=== PATIENT | female | born 1945 | race African-American/Black ===

== ENCOUNTER → 2018-12-30 | Outpatient (CLI) | payer OTHER | END | disposition home or self-care (01) | LOC: US 08:45 | PROC: BW40ZZZ Ultrasonography of Abdomen (ICD-10-PCS; principal; 2018-12-30) | DX: K74.60 Unspecified cirrhosis of liver (principal) ==

== ENCOUNTER 2018-12-31 07:03 | Day surgery (SDC) | payer OTHER ==
[~2018-12-31] VITALS: Ht 160 cm; Wt 91.2 kg
[2018-12-31 07:39] VITALS: BP 135/83
[2018-12-31 13:57] VITALS: BP 112/79
== END 2018-12-31 11:30 | disposition home or self-care (01) ==
LOC: GI 07:03 → OR 07:30 → GI 08:30
PROVIDERS: Internal Medicine
PROC: 0DB68ZZ Excision of Stomach, Via Natural or Artificial Opening Endoscopic (ICD-10-PCS; principal; 2018-12-31 09:00)
PROC: 0DBK8ZZ Excision of Ascending Colon, Via Natural or Artificial Opening Endoscopic (ICD-10-PCS; 2018-12-31 09:00)
PROC: 0DBN8ZZ Excision of Sigmoid Colon, Via Natural or Artificial Opening Endoscopic (ICD-10-PCS; 2018-12-31 09:00)
DX: K22.11 Ulcer of esophagus with bleeding (principal); K31.7 Polyp of stomach and duodenum; D50.9 Iron deficiency anemia, unspecified; K75.81 Nonalcoholic steatohepatitis (NASH); K44.9 Diaphragmatic hernia without obstruction or gangrene; D12.2 Benign neoplasm of ascending colon; D12.5 Benign neoplasm of sigmoid colon; K57.30 Diverticulosis of large intestine without perforation or abscess without bleeding; E11.22 Type 2 diabetes mellitus with diabetic chronic kidney disease; I50.9 Heart failure, unspecified
CPT/HCPCS: 43235; 45378; J1200; J1610; J2250; J2310; J3010; J3490

== ENCOUNTER → 2019-01-12 | Outpatient (CLI) | payer OTHER | END | disposition home or self-care (01) | LOC: MA 09:00 | PROC: BH02ZZZ Plain Radiography of Bilateral Breasts (ICD-10-PCS; principal; 2019-01-12) | DX: Z12.31 Encounter for screening mammogram for malignant neoplasm of breast (principal) | CPT/HCPCS: 77067 ==

== ENCOUNTER → 2019-04-02 | Outpatient (CLI) | payer OTHER | END | disposition home or self-care (01) | LOC: RD 12:11 | DX: M54.5 Low back pain (principal); M79.605 Pain in left leg; M79.604 Pain in right leg ==

== ENCOUNTER 2020-07-13 06:12 | Day surgery (SDC) | payer OTHER ==
[~2020-07-13] VITALS: Ht 160 cm; Wt 102.0 kg
[~2020-07-13 06:12] MED LIST: AMLODIPINE BES2.5 M1 PO; COLACE100 MG PO; COREG3.125 MG PO; COZAAR25 M1 PO; FEOSOL65 M1 PO; LAMICTAL25 M2 PO; MIRTAZAPINE30 M3 PO; NAPROXEN500 MG PO; PANTOPRAZOLE SO40 M1 PO; PAROXETINE HCL10 MG PO; RANEXA500 M2 PO; TELMISARTAN40 MG PO; VITAMIN D50000 I4 PO; XAN5 PO
[2020-07-13 07:20] VITALS: BP 127/73
[2020-07-13 11:23] VITALS: BP 127/71
== END 2020-07-13 11:05 | disposition home or self-care (01) ==
LOC: DS 06:12 → GI 08:30 → OR 08:30 → DS 11:05
PROVIDERS: ATTEND Internal Medicine
DX: K21.9 Gastro-esophageal reflux disease without esophagitis (principal); K44.9 Diaphragmatic hernia without obstruction or gangrene; K29.70 Gastritis, unspecified, without bleeding; K22.2 Esophageal obstruction; K31.89 Other diseases of stomach and duodenum; K31.819 Angiodysplasia of stomach and duodenum without bleeding; Z20.828 Contact with and (suspected) exposure to other viral communicable diseases
CPT/HCPCS: 43235; J1200; J1610; J2250; J2310; J3010; J3490; U0003-CS